=== PATIENT | male | born 1975 | race Caucasian/White ===

== ENCOUNTER 2016-09-01 13:26 | Emergency (ER) | payer SELFPAY ==
[~2016-09-01] VITALS: Ht 177.8 cm; Wt 81.6 kg
--- NOTE | 2016-09-01 13:32 | NUR ---
left hip pain x 2 days, non traumatic. pt states after exercise. gowned pt awaiting md order
[2016-09-01] MEDS ORDERED: MORPHINE SULFATE INJ 4 MG/ML DISP.SYRIN ONE (15:00)
[2016-09-01] MEDS ORDERED: ONDANSETRON 4 MG TAB.RAPDIS SL ONE (15:00)
[2016-09-01] MEDS ORDERED: MORPHINE SULFATE INJ 2 MG/ML DISP.SYRIN IM ONE (15:00)
[2016-09-01] MEDS ORDERED: ONDANSETRON 4 MG TAB.RAPDIS ONE (15:00)
--- NOTE | 2016-09-01 15:00 | NUR ---
pt medicated as ordered
[2016-09-01 15:31] VITALS: BP 148/70
--- NOTE | 2016-09-01 15:32 | NUR ---
Patient discharged to home in stable condition. Written and verbal after care instructions given. Patient verbalizes understanding of instruction.
== END 2016-09-01 15:33 | disposition home or self-care (01) ==
LOC: ER 13:29
DX: M54.42 Lumbago with sciatica, left side (principal); Z90.89 Acquired absence of other organs; F17.200 Nicotine dependence, unspecified, uncomplicated
CPT/HCPCS: 96372; 99283; A4606; J2270; Q0162; Z7610